=== PATIENT | male | born 1985 | race Caucasian/White ===

== ENCOUNTER 2020-01-04 13:02 | Emergency (ER) | payer MEDICAID, SELFPAY ==
[2020-01-04 13:21] VITALS: BP 152/87; PULSE 106; RESP 14; TEMP 36.9; O2SAT 98; BMI 21.6
--- NOTE | 2020-01-04 13:26 | HMH.EDUTC ---
[facility] [place] Clinical Impression: Exposure to COVID-19 virus Disposition: Home, Self-Care Condition on Discharge: Good Instructions: Preventing the Spread of Coronavirus Discharge Instructions Additional Instructions: Drink plenty of fluids. Take tylenol for pain or fever. Follow up with your regular doctor. GO TO THE ER FOR ANY WORSENING SYMPTOMS FOLLOW THE DIRECTIONS ON THE COVID-19 HAND OUT THAT WE GAVE YOU REGARDING SELF-ISOLATION UNTIL YOU KNOW YOUR COVID-19 RESULTS Referrals: Von Becker APRN [Primary Care Provider] - Forms: Work/School Release Time of Disposition: 13:26 Medical Decision Making - Medical Records Medical records reviewed: No: I reviewed the patient's medical records. - Juan Carlos Inquiry Pt receiving controlled substance: No Vital Signs: 01/04/20 13:21 01/04/20 13:36 Temperature 98.4 F 98.4 F Temperature Source Oral Oral Pulse Rate 106 H Pulse Rate [Radial] 106 H Respiratory Rate 14 14 Blood Pressure 152/87 H Blood Pressure [Right Arm] 152/87 H Blood Pressure Mean [Right Arm] 108 Blood Pressure Source Automatic Cuff Blood Pressure Source [Right Arm] Automatic Cuff Blood Pressure Position Sitting Blood Pressure Position [Right Arm] Sitting 02 Sat by Pulse Oximetry 98 Oxygen Delivery Method Room Air Room Air [facility] [place] H[place] - General Stated complaint: covid test Time Seen by Provider: 01/04/20 13:26 Mode of Arrival: Ambulatory Source of Information: Patient Limitations: No Limitations Description of Symptoms (Recalled from Triage Doc. by RN): COVID 19 exposure HEENT Symptoms (Recalled from RN notes): No Resp Symptoms (Recalled from RN notes): No Skin Symptoms (Recalled from RN notes): No MS Symptoms (Recalled from RN notes): No Functional Status (Recalled from RN notes): wnl - History of Present Illness Provider Complaint: He needs a covid test. he denies any symptoms. - Related Data Allergies Allergy/AdvReac Type Severity Reaction Status Date / Time acetaminophen [From Vicodin] Allergy Verified 01/04/20 13:24 hydrocodone [From Vicodin] Allergy Verified 01/04/20 13:24 - Worker's Comp Is this a Worker's Comp case?: No [facility] History - Hepatitis A Screen Drug use history?: No High risk sexual behaviors?: No History of sexually transmitted infection?: No Currently employed?: No Childcare worker?: No Do you have indoor plumbing?: Yes Do you have electricity?: Yes Attestation statement:: This patient has been screened for Hepatitis A risk factors. I have reviewed the patient's past medical history: Yes - Social History Smoking Status: Current every day smoker # Packs/Day (cigarettes): 1 Alcohol Intake: never Occupational Status: employed ROS Obtained: Yes All systems reviewed & no additional complaints - Constitutional Constitutional: Denies chills, Denies fever(s) - Eyes Eyes: Denies eye discharge - ENT Ears, Nose, Mouth, and Throat: Reports as per HPI - Cardiovascular Cardiovascular: Denies chest pain - Respiratory Respiratory: No chest congestion, No cough Physical Exam - General General appearance: alert, in no apparent distress - Head Head exam: atraumatic, normocephalic, normal inspection - Eye Eye exam: Present: normal appearance, PERRL, EOMI - ENT ENT exam: Present: normal exam, normal oropharynx, mucous membranes moist, TM's normal bilaterally, normal external ear exam - Neck Neck exam: Present: normal inspection, full ROM, trachea midline. Absent: meningismus, lymphadenopathy - Chest Chest inspection: Present: normal inspection, symmetric chest wall rise. Absent: tenderness - Respiratory Respiratory exam: Present: normal lung sounds bilaterally. Absent: respiratory distress - Cardiovascular Cardiovascular exam: Present: regular rate, normal rhythm. Absent: JVD - Abdominal Exam Abdominal exam: Present: soft, normal bowel sounds. Absent: distention, tenderness, guarding - Ex
[2020-01-04 13:36] VITALS: BP 152/87; PULSE 106; RESP 14; TEMP 36.9; O2SAT 98
== END 2020-01-04 13:36 | disposition home or self-care (01) ==
PROVIDERS: Emergency Provider Nurse Practitioner Family; PCP Nurse Practitioner
DX: Z20.828 Contact with and (suspected) exposure to other viral communicable diseases (principal)
CPT/HCPCS: 99201; U0003

== ENCOUNTER 2022-10-08 03:11 | Emergency (ER) | payer MEDICAID, SELFPAY ==
[2022-10-08] VITALS (8 sets, daily range): BP systolic 152–189; BP diastolic 79–102; PULSE 90–111; RESP 14–19; TEMP 36.8–37.7; O2SAT 96–99; BMI 22.4
--- NOTE | 2022-10-08 03:27 | CT_ITS ---
PROCEDURE INFORMATION: Exam: CT Abdomen And Pelvis With Contrast Exam date and time: 10/08/2022 4:02 AM Age: 37 years old Clinical indication: Nausea and vomiting; Additional info: N/v/d TECHNIQUE: Imaging protocol: Computed tomography of the abdomen and pelvis with contrast. Radiation optimization: All CT scans at this facility use at least one of these dose optimization techniques: automated exposure control; mA and/or kV adjustment per patient size (includes targeted exams where dose is matched to clinical indication); or iterative reconstruction. Contrast material: ISOVUE; Contrast volume: 75 ml; Contrast route: IV; REPORTING DATA: Count of CT and Cardiac NM exams in prior 12 months: This patient has received 0 known CTs and 0 known cardiac nuclear medicine studies in the 12 months prior to the current study. COMPARISON: No relevant prior studies available. FINDINGS: Coronary arteries: Coronary artery calcifications. Liver: 6 mm hypodensity in the lateral segment of the left hepatic lobe is too small to characterize. Gallbladder and bile ducts: No calcified stones. No ductal dilation. Pancreas: Moderate fatty replacement of the pancreas. Spleen: No mass. Adrenal glands: No mass. Kidneys and ureters: Govea mm right renal cyst. No hydronephrosis. Stomach and bowel: Mild wall thickening of the duodenum and small bowel loops. Findings are nonspecific and appear to be at least in part due to increased intramural fat deposition. Enteritis could be considered, which may be chronic. No evidence of acute inflammatory fat stranding. Mild nonspecific wall thickening also noted of the colon with some liquid stool, which can be seen with diarrheal illness. Appendix: No evidence of appendicitis. Intraperitoneal space: No free air. No significant fluid collection. Vasculature: No abdominal aortic aneurysm. Lymph nodes: No enlarged lymph nodes. Urinary bladder: Unremarkable as visualized. Reproductive: Unremarkable as visualized. Bones/joints: Mild anterior wedging of lower thoracic vertebral bodies, likely chronic. Soft tissues: Unremarkable. IMPRESSION: 1. Mild wall thickening of the duodenum and small bowel loops. Findings are nonspecific and appear to be at least in part due to increased intramural fat deposition. Enteritis could be considered, which may be chronic. Mild nonspecific wall thickening also noted of the colon with some liquid stool, which can be seen with diarrheal illness. No evidence of acute inflammatory fat stranding. 2. Other findings as detailed in the body of the report. COMMENTS: Consistent with the [employer]'s Incidental Findings Committee white paper (J Am Kassie Radiol 2018): Any incidental renal lesion less than 1 cm or classified as too small to characterize, or any incidental cystic renal lesion characterized as simple-appearing, is likely benign. No follow-up imaging is recommended for these lesions per consensus recommendations based on imaging criteria.
[2022-10-08 03:42] LABS: Microscopic, Urine URINE MICROSCOPIC (MICROSCOPIC)
[2022-10-08 03:42] LABS: Adenovirus F 40/41, stool Not Detected (NotDetected); Astrovirus Not Detected (NotDetected); Campylobacter Not Detected (NotDetected); Clostridium Difficile A/B, PCR Not Detected (NotDetected); Cryptosporidium Not Detected (NotDetected); Cyclospora Cayetanesis Not Detected (NotDetected); Entamoeba histolytica Not Detected (NotDetected); Enteroaggregative E coli Not Detected (NotDetected); Enteropathogenic E coli Not Detected (NotDetected); Enterotoxigenic E coli Not Detected (NotDetected); Giardia lamblia Not Detected (NotDetected); Norovirus Not Detected (NotDetected); Plesimonas Shigalloides, PCR Not Detected (NotDetected); Rotavirus A Not Detected (NotDetected); Salmonella, PCR Not Detected (NotDetected); Sapovirus Not Detected (NotDetected); Shiga-like toxin E coli Not Detected (NotDetected); Shigella Enterovasive E coli Not Detected (NotDetected); Vibrio Cholerae Not Detected (NotDetected); Vibrio, PCR Not Detected (NotDetected); Yersinia Entercolitica, PCR Not Detected (NotDetected)
[2022-10-08 03:45] LABS: Basophils % 0.2 % (0.1-2.0); Eosinophils # 0.1 K/mm3 (0.0-0.4); Eosinophils % 0.6 % (0.1-12.0); Hematocrit 50.6 % (42.0-52.0); Hemoglobin 17.3 g/dL (14.1-18.0); Lymphocytes # 1.6 K/mm3 (0.7-4.5); Lymphocytes % 9.4 % (10-50); Mean Corpuscular HGB Conc 34.2 g/dL (31.8-35.4); Mean Corpuscular Hemoglobin 28.4 pg (27.0-31.2); Mean Corpuscular Volume 83.3 fl (80-94); Mean Platelet Volume 8.7 fl (7.4-10.4); Monocytes # 0.9 K/mm3 (0.1-1.0); Monocytes % 5.1 % (1.7-9.3); Neutrophils # 14.7 K/mm3 (1.8-7.8); Neutrophils % 84.6 % (37.0-80.0); Platelet Count 182 K/mm3 (142-424); Red Blood Count 6.07 M/mm3 (4.60-6.20); Red Cell Distribution Width 13.6 % (11.5-17.5); White Blood Count 17.3 K/mm3 (4.8-10.8)
[2022-10-08 03:48] LABS: Appearance,Urine SL CLOUDY (Clear); Blood, Urine 2+ (Negative); Color,Urine DK YELLOW (Yellow); Glucose,Urine (UA) Negative (Negative); Ketones,Urine 1+ (Negative); Leukocyte Esterase,Urine Negative (Negative); Nitrate,Urine Negative (Negative); PH,Urine 5.5 (5.0-8.5); Protein,Urine 3+ (Negative); Specific Gravity, Urine >= 1.030 (1.005-1.030)
[2022-10-08 03:51] LABS: Alanine Aminotransferase 24 U/L (12-78); Albumin Level 4.1 g/dl (3.5-5.0); Albumin/Globulin Ratio 1.1 (1.1-1.8); Alkaline Phosphatase 96 U/L (38-126); Amylase 48 U/L (30-110); Anion Gap 17.8 mEq/L (5-15); Aspartate Amino Transferase 31 U/L (17-59); Bilirubin,Total 1.3 mg/dl (0.2-1.3); Blood Urea Nitrogen 10 mg/dl (9-20); Calcium 8.8 mg/dl (8.4-10.2); Carbon Dioxide 27 mmol/L (22.0-30.0); Chloride 89 mmol/L (98-107); Creatinine Clearance Estimated 143 mL/min (50-200); Estimated Glomerular Filt Rate 150 ml/min (>60); GFR (African American) 181 ML/MIN (>60); Globulin 3.7 g/dL (1.3-3.2); Glucose 128 mg/dl (74-100); Lipase 23 U/L (23-300); Sodium 131 mmol/L (136-145); Total Protein,Serum 7.8 g/dl (6.3-8.2)
[2022-10-08 03:52] LABS: Potassium 2.8 mmoL/L (3.5-5.1)
--- NOTE | 2022-10-08 03:52 | PC.NURSE ---
Dr. caraballo notified for critical potassium.
[2022-10-08 03:53] LABS: Strep Scrn Group A (Rapid) Positive (Negative)
[2022-10-08 03:54] LABS: MANUAL DIFFERENTIAL MANUAL DIFFERENTIAL (MANUAL DIFF)
[2022-10-08 03:56] LABS: C-Reactive Protein 101.8 mg/L (0-4)
[2022-10-08 04:00] LABS: Bilirubin,Urine 2+ (Negative)
[2022-10-08 04:01] LABS: Bacteria,Urine 1+ /lpf; Mucus,Urine Trace /lpf; RBC,Urine Occasional #/hpf (0-3)
[2022-10-08 04:10] LABS: Procalcitonin 0.834 ng/mL (0.0-2.0)
[2022-10-08 04:11] LABS: Lymphocytes % 13 % (10-50); Monocytes % 3 % (2-9); Neutrophils % 81 % (42-76); Platelet Estimate Normal; RBC Morphology Normal; Total Cells Counted 100
[2022-10-08 04:13] LABS: Erythrocyte Sedimentation Rate 1 mm/hr (0-15)
--- NOTE | 2022-10-08 04:35 | PC.NURSE ---
pt back from ct scan, updated on results thus far. He received PO Potassium and needed to use the bathroom again.
--- NOTE | 2022-10-08 04:39 | PC.NURSE ---
pt back from restroom hooked to fluids and vitals. lights off requested by pt
--- NOTE | 2022-10-08 04:56 | HMH.EDABDPAI ---
Discharge Plan Disposition Patient Disposition: Home, Self-Care Prescriptions Prescriptions: New cephalexin [cephalexin] 500 mg capsule 500 mg PO TID Qty: 21 0RF Referrals Follow up/Referrals: Provider,Referral, MD [Primary Care Provider] - See instructions Clinical Impressions Clinical Impression: Strep sore throat, Enteritis, Acute hypokalemia, Hyperthyroidism Instructions Patient Instructions: DI for Strep Throat, DI for Hypokalemia, DI for Vomiting -- Adult Discharge ED Provider: Mateus (ED)Bhanu Abdominal Pain HPI General Chief Complaint: Abdominal Pain Stated Complaint: sore throat, diarrhea, vomiting Time Seen by Provider: 10/08/22 04:56 Mode of Arrival: Ambulatory Source of Information: Patient and Medical Record Limitations: No Limitations Description of Symptoms (Recalled from ER Triage Doc. by RN): pt c/o sore throat since . n/v/d since sunday morning. pt denies any abd pain History of Present Illness HPI narrative: sore throat over the last few days followed by diarrhea - hx of ibs - has thyroid dis but has stopped meds Onset (ago): day(s) Consistency: intermittent Severity: moderate Related Data Previous Rx's Medication Instructions Recorded cephalexin 500 mg capsule 500 mg PO TID #21 caps 10/08/22 Allergies Allergy/AdvReac Type Severity Reaction Status Date / Time acetaminophen [From Vicodin] Allergy Verified 01/04/20 13:24 amoxicillin Allergy Verified 10/08/22 05:34 hydrocodone [From Vicodin] Allergy Verified 01/04/20 13:24 [facility]SH [facility] Disclaimer: The information contained in this section may have been updated after the patient was seen, as this information can be updated by other users. Social History Smoking Status: Current every day smoker alcohol intake: never current occupational status: employed Travel in the last 8 weeks: None ROS Obtained: Yes All systems reviewed & no additional complaints except as documented Physical Exam General General appearance: alert Head Head exam: normocephalic Eye Eye exam: Present PERRL and EOMI ENT ENT exam: Present normal oropharynx and mucous membranes moist Neck Neck exam: Present trachea midline Respiratory Respiratory exam: Absent respiratory distress Cardiovascular Cardiovascular exam: Present regular rate Abdominal Exam Abdominal exam: Present soft; Absent tenderness Extremities Exam Extremities exam: Present normal inspection Neurological Exam Neurological exam: Present alert, oriented X3 and CN II-XII intact; Absent motor sensory deficit Psychiatric Psychiatric exam: Present normal affect Skin Skin exam: Absent rash Medical Decision Making Medical Records Medical records reviewed: Yes I reviewed the patient's medical records. Juan Carlos Inquiry Pt receiving controlled substance: No Vital Signs: 10/08/22 03:11 10/08/22 03:36 10/08/22 04:34 Temperature 99.9 F H Temperature Source Oral Pulse Rate 107 H 105 H Pulse Rate [Right] 110 H Respiratory Rate 14 Blood Pressure 189/99 H 166/86 H Blood Pressure [Right Arm] 186/90 H Blood Pressure Mean [Right Arm] 122 02 Sat by Pulse Oximetry 99 99 98 Oxygen Delivery Method 10/08/22 05:00 10/08/22 05:30 10/08/22 06:11 Temperature Temperature Source Pulse Rate 106 H 91 H Pulse Rate [Right] Respiratory Rate Blood Pressure 169/88 H 163/79 H Blood Pressure [Right Arm] Blood Pressure Mean [Right Arm] 02 Sat by Pulse Oximetry 97 97 Oxygen Delivery Method Room Air 10/08/22 06:11 10/08/22 06:01 10/08/22 06:30 Temperature 98.2 F Temperature Source Pulse Rate 90 111 H 99 H Pulse Rate [Right] Respiratory Rate 19 Blood Pressure 153/90 H 152/102 H 153/90 H Blood Pressure [Right Arm] Blood Pressure Mean [Right Arm] 02 Sat by Pulse Oximetry 97 96 Oxygen Delivery Method Room Air Lab Data Lab results reviewed: Yes I reviewed the patient's lab results. Lab Results
--- NOTE | 2022-10-08 05:51 | PC.NURSE ---
pt to the bathroom and back. IVF restarted
--- NOTE | 2022-10-08 06:17 | PC.NURSE ---
Called lab to check to time remaining of diarrhea panel, 8 min remaining
[2022-10-08 06:33] LABS: T4 (Thyroxine) 18.2 ug/dl (5.53-11.0)
--- NOTE | 2022-10-08 06:42 | PC.NURSE ---
called lab to check time remaining on t4 & tsh, 4 min remain. aware
[2022-10-08 06:46] LABS: Thyroid Stimulating Hormone < 0.02 uIU/mL (0.465-4.68)
== END 2022-10-08 07:02 | disposition home or self-care (01) ==
PROVIDERS: Emergency Provider Emergency Medicine
DX: J02.0 Streptococcal pharyngitis (principal); K52.9 Noninfective gastroenteritis and colitis, unspecified; E87.6 Hypokalemia
CPT/HCPCS: 74177; 80053; 81001; 82150; 83690; 84145; 84436; 84443; 85007; 85025; 85651; 86140; 87430; 87507; 96361; 96374; 99285; J0696; J2405; Q9967

== ENCOUNTER 2023-01-07 15:59 | Emergency (ER) | payer MEDICAID, SELFPAY ==
[2023-01-07 16:05] VITALS: BP 177/92; PULSE 96; RESP 20; TEMP 36.8; O2SAT 98; BMI 23.3
--- NOTE | 2023-01-07 16:20 | EXP.UTC ---
Discharge Plan Disposition Patient Disposition: Home, Self-Care Condition: Good Prescriptions Prescriptions: New clindamycin HCl 300 mg capsule 300 mg PO Q8H Qty: 30 0RF sulfamethoxazole-trimethoprim [Bactrim DS] 800-160 mg Tablet 1 tab PO BID Qty: 20 0RF mupirocin 2 % ointment 1 applic topical TID 7 Days Qty: 15 0RF No Action cephalexin [cephalexin] 500 mg capsule 500 mg PO TID Qty: 21 0RF Referrals Follow up/Referrals: Sohan Simms PA [Primary Care Provider] - See instructions Activity Restrictions/Add. Instructions Additional Instructions/Restrictions: Keep the wounds clean and dry. Follow up with your regular doctor. Take the antibiotics as directed and apply the topical antibiotics as directed. Make sure you stay in contact with the health department regarding the health of the dog. Watch the wounds for signs of worsening infection, such as worsening redness, drainage, swelling, etc. GO TO THE ER FOR ANY WORSENING SYMPTOMS Clinical Impressions Clinical Impression: Dog bite of right thigh Instructions Patient Instructions: DI for Dog Bite, DI for Animal Bites, Clindamycin, Trimethoprim/Sulfamethoxazole (Alternative Therapy), Mupirocin Discharge ED Provider: Gagandeep Ríos [facility] General Stated complaint: w/c dog bite rt leg 01/07/2023 Mode of Arrival: Ambulatory Source of Information: Patient Limitations: No Limitations Time Seen by Provider: 01/07/23 16:20 Description of Symptoms (Recalled from Triage Doc. 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 He has a dog bite on the back of his right thigh. He denies any other injury. The animal therapist is here in the room with him. Related Data Previous Rx's Medication Instructions Recorded cephalexin 500 mg capsule 500 mg PO TID #21 caps 10/08/22 clindamycin HCl 300 mg capsule 300 mg PO Q8H #30 caps 01/07/23 mupirocin 2 % topical ointment 1 applic topical TID 7 days #15 01/07/23 grams sulfamethoxazole 800 1 tab PO BID #20 tabs 01/07/23 mg-trimethoprim 160 mg tablet (Bactrim DS) Allergies Allergy/AdvReac Type Severity Reaction Status Date / Time acetaminophen [From Vicodin] Allergy Verified 01/04/20 13:24 amoxicillin Allergy Verified 10/08/22 05:34 hydrocodone [From Vicodin] Allergy Verified 01/04/20 13:24 Worker's Comp Is this a Worker's Comp case?: No [facility] Disclaimer: The information contained in this section may have been updated after the patient was seen, as this information can be updated by other users. Medical History (Updated 01/07/23 @ 17:11 by Gagandeep Ríos APRN) Anxiety Depression Hypertension Thyroid disease Social History Smoking Status: Current every day smoker alcohol intake: never current occupational status: employed Travel in the last 8 weeks: None ROS Obtained: Yes All systems reviewed & no additional complaints except as documented Constitutional Constitutional: Denies chills and Denies fever(s) Eyes Eyes: Denies eye discharge ENT Ears, Nose, Mouth, and Throat: Denies dizziness, Denies otalgia and Denies sore throat Cardiovascular Cardiovascular: Denies chest pain Respiratory Respiratory: Denies shortness of breath, Denies chest congestion, Denies cough, Denies stridor and Denies wheezing Gastrointestinal Gastrointestingal: Denies nausea or vomiting Musculoskeletal Musculoskeletal: Reports system reviewed and no additional complaints, except as documented and Denies arthralgias Integumentary/Breasts Skin/Breast: Reports as per
--- NOTE | 2023-01-07 16:43 | PC.NURSE ---
STEF CAST WITH ANIMAL CONTROL AT BEDSIDE AT THIS TIME
[2023-01-07 17:13] VITALS: BP 177/92; PULSE 96; RESP 20; TEMP 36.8; O2SAT 98
== END 2023-01-07 17:15 | disposition home or self-care (01) ==
PROVIDERS: Emergency Provider Nurse Practitioner Family; PCP Student in an Organized Health Care Education/Training Program
DX: S71.151A Open bite, right thigh, initial encounter (principal); F17.210 Nicotine dependence, cigarettes, uncomplicated; I10 Essential (primary) hypertension; E03.9 Hypothyroidism, unspecified; F41.9 Anxiety disorder, unspecified; F32.A Depression, unspecified; Z57.8 Occupational exposure to other risk factors; W54.0XXA Bitten by dog, initial encounter
CPT/HCPCS: 99204; 99212; G0463

== ENCOUNTER 2023-05-24 08:45 | Emergency (ER) | payer MEDICAID, SELFPAY ==
[2023-05-24 08:55] VITALS: BP 128/86; PULSE 89; RESP 19; TEMP 36.8; O2SAT 98; BMI 22.3
--- NOTE | 2023-05-24 09:17 | ED_ITS ---
Discharge Plan Disposition Patient Disposition: Home, Self-Care Condition: Good Referrals Follow up/Referrals: Sohan Simms PA [Primary Care Provider] - See instructions Activity Restrictions/Add. Instructions Additional Instructions/Restrictions: [facility] [place] [address], [place] [address] Further care per the [facility] [place] Clinical Impressions Clinical Impression: Eye problem Discharge ED Provider: Erica Miller Addie [facility] HPI General Stated complaint: swollen right eye, leaking Mode of Arrival: Ambulatory Source of Information: Patient Limitations: No Limitations Time Seen by Provider: 05/24/23 09:17 Description of Symptoms (Recalled from Triage Doc. by RN): PATIENT C/O REDNESS AND SWELLING TO RIGHT EYE X 5 DAYS HEENT Symptoms (Recalled from RN notes): Yes Resp Symptoms (Recalled from RN notes): No Skin Symptoms (Recalled from RN notes): No MS Symptoms (Recalled from RN notes): No Functional Status (Recalled from RN notes): WNL History of Present Illness Provider Complaint: Patient states that for the last 5 days he has been having redness and swelling in his right eye worse since last night states that now his entire eye is red, had to pry it open this morning and vision is blurry in it and now the whole white of his eye is red So he came in Related Data Allergies Allergy/AdvReac Type Severity Reaction Status Date / Time acetaminophen [From Vicodin] Allergy Verified 01/04/20 13:24 amoxicillin Allergy Verified 10/08/22 05:34 hydrocodone [From Vicodin] Allergy Verified 01/04/20 13:24 Worker's Comp Is this a Worker's Comp case?: No [facility] Disclaimer: The information contained in this section may have been updated after the patient was seen, as this information can be updated by other users. Medical History (Updated 05/24/23 @ 09:25 by Erica Miller APRN) Anxiety Depression Hypertension Thyroid disease Social History Smoking Status: Current every day smoker alcohol intake: never current occupational status: employed Travel in the last 8 weeks: None ROS Obtained: Yes All systems reviewed & no additional complaints except as documented and Yes Systems reviewed as appropriate & no additional complaints except as documented Constitutional Constitutional: Reports system reviewed and no additional complaints, except as documented and Reports as per HPI Eyes Eyes: Reports system reviewed and no additional complaints, except as documented, Reports as per HPI, Reports blurry vision, Reports irritation and Reports eye pain ( feels uncomfortable ) ENT Ears, Nose, Mouth, and Throat: Reports system reviewed and no additional complaints, except as documented and Reports as per HPI Cardiovascular Cardiovascular: Reports system reviewed and no additional complaints, except as documented and Reports as per HPI Respiratory Respiratory: Reports system reviewed and no additional complaints, except as documented and Reports as per HPI Gastrointestinal Gastrointestingal: Reports system reviewed and no additional complaints, except as documented and as per HPI Physical Exam General General appearance: alert and in no apparent distress Eye Eye exam: Present discharge (clear watery drainge) and other (conjunctival hemorrhage noted with blister like area noted) Respiratory Respiratory exam: Present normal lung sounds bilaterally; Absent respiratory distress or wheezes Cardiovascular Cardiovascular exam: Present regular rate, normal rhythm and normal heart sounds Neurological Exam Neurological exam: Present alert, oriented X3 and normal gait Medical Decision Making Juan Carlos Inquiry Pt receiving controlled substance: No Juan Carlos was queried for this patient: No Vital Signs: 05/24/23 08:55 Temperature 98.3 F Temperature Source Oral Pulse Rate [Left Brachial] 89 Respiratory Rate 19 Blood Pressure [Left Arm] 128/86 Blood Pressure Mean [Left Arm] 100 Blood Pressure Source [Left Arm] Automatic Cuff Blood Pressure Position [Left Arm] Sitting 02 Sat by Pulse Oximetry 98 Oxygen Delivery Method Room Air Medical Decision Narrative: Spoke with [facility] [place] about finding and patient complaints and they advised to have him come straight into the Clinic for further evaluation and examination Discussed with patient and he agreed patient will go straight to the clinic upon leaving the [facility]
[2023-05-24 09:20] VITALS: BP 128/86; PULSE 89; RESP 19; TEMP 36.8; O2SAT 98
== END 2023-05-24 09:30 | disposition home or self-care (01) ==
PROVIDERS: Emergency Provider Nurse Practitioner; PCP Student in an Organized Health Care Education/Training Program
DX: H57.89 Other specified disorders of eye and adnexa (principal); F17.210 Nicotine dependence, cigarettes, uncomplicated
CPT/HCPCS: 99212; 99214; G0463